=== PATIENT | female | born 1975 | race American Indian/Alaskan Native ===

== ENCOUNTER 2017-02-10 15:47 | Emergency (ER) | payer MEDICARE ==
[2017-02-10 16:23] VITALS: BP 145/98
[2017-02-10] MEDS ORDERED: MOTRIN PO ONE ×2 (19:25→19:27)
--- NOTE | 2017-02-10 20:00 | Emergency Department Report ---
ED Extremity Problem HPI - General Chief complaint: Extremity Injury, Lower Stated complaint: RT ANKLE INJURY Time Seen by Provider: 02/10/17 19:56 Source: patient Mode of arrival: Ambulatory Limitations: No Limitations - History of Present Illness Initial comments: 41-year-old female presents with complaint of pain to her right foot. States that she had an inversion injury. Complaining of pain in her right ankle and right foot. Patient states that she is in a [place] to leave the hospital because she has personal business to take care of does not wish to stay for further assessment simply wishes to be given paperwork that she was here today. Patient states that it is painful to walk on her right foot. States that she needs paperwork as soon as possible and wants to leave AGAINST MEDICAL ADVICE. MD Complaint: extremity pain, extremity swelling -: This morning Location: right, lower extremity Severity scale (0 -10): 6 Quality: aching Consistency: constant ([place] little relief with the lady that was in the wheelchair the Blood coming from) Worsens with: walking - Related Data Previous Rx's Medication Instructions Recorded Last Taken Type Naproxen [Naprosyn TAB] 375 mg PO BID PRN #20 tablet 02/10/17 Unknown Rx Allergies Allergy/AdvReac Type Severity Reaction Status Date / Time No Known Allergies Allergy Unverified 02/10/17 16:23 ED Review of Systems ROS: Stated complaint: RT ANKLE INJURY Other details as noted in HPI Constitutional: denies: chills, fever Eyes: denies: eye pain, eye discharge, vision change ENT: denies: ear pain, throat pain Respiratory: denies: cough, shortness of breath, wheezing Cardiovascular: denies: chest pain, palpitations Endocrine: no symptoms reported Gastrointestinal: denies: abdominal pain, nausea, diarrhea Genitourinary: denies: urgency, dysuria, discharge Musculoskeletal: as per HPI. denies: back pain, joint swelling, arthralgia Skin: denies: rash, lesions Neurological: denies: headache, weakness, paresthesias Psychiatric: denies: anxiety, depression Hematological/Lymphatic: denies: easy bleeding, easy bruising ED Past Medical Hx - Past Medical History Previous Medical History?: No - Surgical History Past Surgical History?: No - Social History Smoking Status: Current Every Day Smoker Substance Use Type: None - Medications Home Medications: Home Medications Medication Instructions Recorded Confirmed Last Taken Type Naproxen [Naprosyn TAB] 375 mg PO BID PRN #20 tablet 02/10/17 Unknown Rx ED Physical Exam - General Limitations: No Limitations General appearance: alert, in no apparent distress - Head Head exam: Present: atraumatic, normocephalic - Eye Eye exam: Present: normal appearance, PERRL, EOMI - ENT ENT exam: Present: mucous membranes moist - Neck Neck exam: Present: normal inspection - Respiratory Respiratory exam: Present: normal lung sounds bilaterally. Absent: respiratory distress - Cardiovascular Cardiovascular Exam: Present: regular rate, normal rhythm. Absent: systolic murmur, diastolic murmur, rubs, gallop - GI/Abdominal GI/Abdominal exam: Present: soft, normal bowel sounds - Extremities Exam Extremities exam: Present: normal inspection - Expanded Lower Extremity Exam Right Ankle exam: Present: tenderness (tenderness at right lateral malleolus and medial malleolus) Foot/Toe exam: Present: tenderness (tenderness at base of fifth metatarsal) Neuro vascular tendon exam: Present: no vascular compromise (distal dorsalis pedis and posterior tibial pulses intact) - Back Exam Back exam: Present: normal inspection - Neurological Exam Neurological exam: Present: alert, oriented X3 - Psychiatric Psychiatric exam: Present: normal affect, normal mood - Skin Skin exam: Present: warm, dry, intact, normal color. Absent: rash ED Course Vital Signs 02/10/17 16:20 Temperature 98.7 F Pulse Rate 92 H Respiratory 16 Rate Blood Pressure 145/98 O2 Sat by Pulse 100 Oximetry ED Medical Decision Making - Medical Decision Making A/P: Possible right foot or right ankle fracture versus sprain 1-patient left AGAINST MEDICAL ADVICE. I advised her that she needed an x-ray of her right foot in addition to her right ankle and that I did not yet have an official radiology report. Patient stated that she could not wait any longer and that she had to leave. I advised patient that if she has a fracture in her foot or ankle and I am not able to fully assess her injury that he can result in permanent disability or loss of foot function. Patient stated she understood this but is adamant that she wants to leave the hospital as soon as possible. Patient states that she cannot wait any longer and wished to leave now. Conversation witnessed by management trainer Kasey. Patient refused an ankle brace or crutches although I offered to her multiple times. 3-patient given Adriel wrap and prescription for naproxen, referred to primary care and orthopedics. I advised her to follow up as soon as possible or to return to the ED for full assessment as soon as possible. Patient uses a wheelchair to exit the emergency department and stated she had a ride waiting for her outside. Critical care attestation.: If time is entered above; I have spent that time in minutes in the direct care of this critically ill patient, excluding procedure time. ED Disposition Disposition: LEFT AGAINST MED ADVICE Is pt being admited?: No Does the pt Need Aspirin: No Condition: Undetermined Instructions: Ankle Sprain (ED), SUSPECTED FRACTURE (ED), RICE Therapy (ED) Prescriptions: Naproxen [Naprosyn TAB] 375 mg PO BID PRN #20 tablet PRN Reason: Pain Referrals: KAL MARTINS MD [Staff Physician] - 3-5 Days [facility] [Provider Group] - 3-5 Days Forms: AMA Form Time of Disposition: 19:58
--- NOTE | 2017-02-10 20:55 | XRay Report ---
FINAL REPORT PROCEDURE: XR ANKLE 3+V RT TECHNIQUE: RIGHT ankle radiographs, AP, lateral, and oblique views. CPT 97393 HISTORY: pain, swelling COMPARISON: No prior studies are available for comparison. FINDINGS: Fracture (s) and/or Dislocation(s): There is flattening of the navicular bone with the increased density. There is also associated modeling deformity of the talar head an acute fracture line is not identified. Alignment: Normal. Joint space(s): Narrowing of the talonavicular and navicular cuneiform joints is identified with mild degree osteophyte formation.. Soft tissues: Normal. Bone mineralization: Normal. Foreign bodies: None. Calcaneal spurring: None. 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 An acute fracture is not identified.
== END 2017-02-10 20:00 | disposition left against medical advice (07) ==
LOC: ED 15:47
DX: M25.571 Pain in right ankle and joints of right foot (principal); F17.200 Nicotine dependence, unspecified, uncomplicated; X58.XXXA Exposure to other specified factors, initial encounter; Y93.89 Activity, other specified; Y99.9 Unspecified external cause status; Y92.89 Other specified places as the place of occurrence of the external cause

== ENCOUNTER 2017-11-09 22:50 | Emergency (ER) | payer MEDICARE ==
[2017-11-09] MEDS ORDERED: NACL 0.9% 1000 ML 1,000 ML IV ONE (23:04)
--- NOTE | 2017-11-09 23:08 | Emergency Department Report ---
<LISSETTE LINDSAY - Last Filed: 11/10/17 02:04> ED Altered Mental Status HPI - General Stated Complaint: AMS Time Seen by Provider: 11/09/17 23:01 Source: patient, EMS, old records reviewed - History of Present Illness Initial Comments: Ms. Lindsay is a 41-year-old female without significant past medical history according to report. To resume all myositis. She has abnormal speech. She was dropped off in front of a personal longterm. The attendant's of the [facility] did not know the patient. EMS was called. MD Complaint: altered mental status -: unknown Severity: moderate Consistency of Symptoms: constant Context: unknown Associated Symptoms: denies other symptoms Treatments Prior to Arrival: oxygen - Related Data Previous Rx's Medication Instructions Recorded Last Taken Type Naproxen [Naprosyn TAB] 375 mg PO BID PRN #20 tablet 02/10/17 Unknown Rx Allergies Allergy/AdvReac Type Severity Reaction Status Date / Time No Known Allergies Allergy Unverified 02/10/17 16:23 ED Review of Systems ROS: Stated complaint: AMS Other details as noted in HPI Comment: All other systems reviewed and negative Constitutional: denies: fever, malaise Respiratory: denies: cough ED Past Medical Hx - Social History Smoking Status: Current Every Day Smoker Substance Use Type: None - Medications Home Medications: Home Medications Medication Instructions Recorded Confirmed Last Taken Type Naproxen [Naprosyn TAB] 375 mg PO BID PRN #20 tablet 02/10/17 Unknown Rx ED Physical Exam - General Limitations: Altered Mental Status, Physical Limitation General appearance: alert, other (has abnormal speech) - Head Head exam: Present: atraumatic, normocephalic - Eye Eye exam: Present: normal appearance, PERRL, EOMI - ENT ENT exam: Present: normal exam, mucous membranes moist - Neck Neck exam: Present: normal inspection. Absent: tenderness, meningismus - Respiratory Respiratory exam: Present: normal lung sounds bilaterally. Absent: respiratory distress, wheezes, rales, rhonchi - Cardiovascular Cardiovascular Exam: Present: regular rate, normal rhythm, normal heart sounds. Absent: systolic murmur, diastolic murmur, rubs, gallop - GI/Abdominal GI/Abdominal exam: Present: soft, normal bowel sounds. Absent: distended, tenderness, guarding, rebound - Extremities Exam Extremities exam: Present: normal inspection - Back Exam Back exam: Present: normal inspection - Neurological Exam Neurological exam: Present: alert, oriented X3, CN II-XII intact, other ( dysarthric speech). Absent: motor sensory deficit - Psychiatric Psychiatric exam: Present: flat affect (odd affect), other - Skin Skin exam: Present: warm, dry, intact, normal color. Absent: rash - Assessment Assessment Interval: Baseline - Level of Consciousness 1a. Level of Consciousness: alert - LOC Questions 1b. LOC Questions: answers correctly - LOC Command 1c. LOC Commands: performs tasks correctly - Best Gaze 2. Best Gaze: normal - Visual 3. Visual: no visual loss - Facial Palsy 4. Facial Palsy: minor paralysis - Motor Arm 5b. Motor Arm Right: no drift 5a. Motor Arm Left: no drift - Motor Leg 6a. Motor Leg Left: no drift 6b. Motor Leg Right: no drift - Limb Ataxia 7. Limb Ataxia: absent - Sensory 8. Sensory: normal - Best Language 9. Best Language: mild/moderate aphasia - Dysarthria 10. Dysarthria: mild/moderate dysarthria - Extinction and Inattention 11. Extinction/Inattention: no abnormality - Scoring Total Score: 3 Stroke Severity: Minor Stroke ED Course Vital Signs 11/09/17 11/09/17 11/09/17 23:05 23:22 23:30 Temperature 98.6 F Pulse Rate 116 H 103 H 91 H Respiratory 20 20 20 Rate Blood Pressure 117/67 123/75 O2 Sat by Pulse 96 98 98 Oximetry 11/09/17 11/09/17 11/10/17 23:46 23:50 00:00 Temperature Pulse Rate 91 H 96 H 100 H Respiratory 20 14 16 Rate Blood Pressure 133/67 144/78 O2 Sat by Pulse 100 100 99 Oximetry 11/10/17 11/10/17 11/10/17 00:16 00:30 00:46 Temperature Pulse Rate 92 H 92 H 97 H Respiratory 18 22 21 Rate Blood Pressure 144/78 131/71 133/67 O2 Sat by Pulse 100 100 99 Oximetry 11/10/17 11/10/17 11/10/17 01:00 01:26 01:30 Temperature Pulse Rate 91 H 87 86 Respiratory 20 17 22 Rate Blood Pressure 122/69 131/71 109/55 O2 Sat by Pulse 100 100 Oximetry 11/10/17 11/10/17 11/10/17 01:46 02:00 02:15 Temperature Pulse Rate 91 H 96 H 95 H Respiratory 20 22 20 Rate Blood Pressure 109/55 116/47 O2 Sat by Pulse 97 96 95 Oximetry 11/10/17 11/10/17 11/10/17 02:30 02:45 03:00 Temperature Pulse Rate 96 H 93 H 90 Respiratory 21 22 22 Rate Blood Pressure 109/50 114/59 106/51 O2 Sat by Pulse 96 100 100 Oximetry 11/10/17 11/10/17 11/10/17 03:15 03:30 03:45 Temperature Pulse Rate 90 86 Respiratory 22 26 H Rate Blood Pressure 115/70 114/64 103/67 O2 Sat by Pulse 99 100 100 Oximetry 11/10/17 11/10/17 04:00 04:15 Temperature Pulse Rate 93 H 96 H Respiratory 24 22 Rate Blood Pressure 93/57 98/56 O2 Sat by Pulse 98 97 Oximetry - Lab Data Result diagrams: 11/09/17 23:18 11/09/17 23:18 Lab Results 11/09/17 11/09/17 11/09/17 Range/Units 00:20 23:09 23:09 WBC (4.5-11.0) K/mm3 RBC (3.65-5.03) M/mm3 Hgb (10.1-14.3) gm/dl Hct (30.3-42.9) % MCV (79-97) fl MCH (28-32) pg MCHC (30-34) % RDW (13.2-15.2) % Plt Count (140-440) K/mm3 Lymph % (Auto) (13.4-35.0) % [place] % (Auto) (0.0-7.3) % Eos % (Auto) (0.0-4.3) % Baso % (Auto) (0.0-1.8) % Lymph # (1.2-5.4) K/mm3 [place] # (0.0-0.8) K/mm3 Eos # (0.0-0.4) K/mm3 Baso # (0.0-0.1) K/mm3 Seg Neutrophils % (40.0-70.0) % Seg Neutrophils # (1.8-7.7) K/mm3 Sodium (137-145) mmol/L Potassium (3.6-5.0) mmol/L Chloride (98-107) mmol/L Carbon Dioxide (22-30) mmol/L Anion Gap mmol/L BUN (7-17) mg/dL Creatinine (0.7-1.2) mg/dL Estimated GFR ml/min BUN/Creatinine Ratio % Glucose (65-100) mg/dL Lactic Acid (0.7-2.0) mmol/L Calcium (8.4-10.2) mg/dL Total Bilirubin (0.1-1.2) mg/dL AST (5-40) units/L ALT (7-56) units/L Alkaline Phosphatase (35-129) units/L Ammonia (25-60) umol/L Total Creatine Kinase (30-135) units/L Troponin T (0.00-0.029) ng/mL Total Protein (6.3-8.2) g/dL Albumin (3.9-5) g/dL Albumin/Globulin Ratio % TSH (0.270-4.200) mlU/mL Urine Color Yellow (Yellow) Urine Turbidity Clear (Clear) Urine pH 6.0 (5.0-7.0) Ur Specific [place] 1.006 (1.003-1.030) Urine Protein <15 mg/dl (Negative) mg/dL Urine Glucose (UA) Neg (Negative) mg/dL Urine Ketones Neg (Negative) mg/dL Urine Blood Neg (Negative) Urine Nitrite Neg (Negative) Urine Bilirubin Neg (Negative) Urine Urobilinogen < 2.0 (<2.0) mg/dL Ur Leukocyte Esterase Neg (Negative) Urine WBC (Auto) < 1.0 (0.0-6.0) /HPF Urine RBC (Auto) 1.0 (0.0-6.0) /HPF U Epithel Cells (Auto) < 1.0 (0-13.0) /HPF Hyaline Casts 1 /LPF Urine Mucus Few /HPF Urine HCG, Qual Negative (Negative) Salicylates (2.8-20.0) mg/dL Urine Opiates Screen Presumptive negative Urine Methadone Screen Presumptive negative Acetaminophen (10.0-30.0) ug/mL Ur Barbiturates Screen Presumptive negative Ur Phencyclidine Scrn Presumptive negative Ur Amphetamines Screen Presumptive negative U Benzodiazepines Scrn Presumptive negative Urine Cocaine Screen Presumptive positive U Marijuana (THC) Screen Presumptive negative Drugs of Abuse Note Disclamer Plasma/Serum Alcohol (0-0.07) % 11/09/17 11/09/17 11/09/17 Range/Units 23:18 23:18 23:18 WBC 13.0 H (4.5-11.0) K/mm3 RBC 4.46 (3.65-5.03) M/mm3 Hgb 14.1 (10.1-14.3) gm/dl Hct 42.8 (30.3-42.9) % MCV 96 (79-97) fl MCH 32 (28-32) pg MCHC 33 (30-34) % RDW 13.9 (13.2-15.2) % Plt Count 327 (140-440) K/mm3 Lymph % (Auto) 21.3 (13.4-35.0) % [place] % (Auto) 4.8 (0.0-7.3) % Eos % (Auto) 0.2 (0.0-4.3) % Baso % (Auto) 1.0 (0.0-1.8) % Lymph # 2.8 (1.2-5.4) K/mm3 [place] # 0.6 (0.0-0.8) K/mm3 Eos # 0.0 (0.0-0.4) K/mm3 Baso # 0.1 (0.0-0.1) K/mm3 Seg Neutrophils % 72.7 H (40.0-70.0) % Seg Neutrophils # 9.5 H (1.8-7.7) K/mm3 Sodium 139 (137-145) mmol/L Potassium 3.2 L (3.6-5.0) mmol/L Chloride 98.3 (98-107) mmol/L Carbon Dioxide 21 L (22-30) mmol/L Anion Gap 23 mmol/L BUN 7 (7-17) mg/dL Creatinine 0.9 (0.7-1.2) mg/dL Estimated GFR > 60 ml/min BUN/Creatinine Ratio 8 % Glucose 86 (65-100) mg/dL Lactic Acid 2.30 H* (0.7-2.0) mmol/L Calcium 9.3 (8.4-10.2) mg/dL Total Bilirubin 0.30 (0.1-1.2) mg/dL AST 15 (5-40) units/L ALT 10 (7-56) units/L Alkaline Phosphatase 82 (35-129) units/L Ammonia (25-60) umol/L Total Creatine Kinase 222 H (30-135) units/L Troponin T < 0.010 (0.00-0.029) ng/mL Total Protein 7.4 (6.3-8.2) g/dL Albumin 4.4 (3.9-5) g/dL Albumin/Globulin Ratio 1.5 % TSH (0.270-4.200) mlU/mL Urine Color (Yellow) Urine Turbidity (Clear) Urine pH (5.0-7.0) Ur Specific [place] (1.003-1.030) Urine Protein (Negative) mg/dL Urine Glucose (UA) (Negative) mg/dL Urine Ketones (Negative) mg/dL Urine Blood (Negative) Urine Nitrite (Negative) Urine Bilirubin (Negative) Urine Urobilinogen (<2.0) mg/dL Ur Leukocyte Esterase (Negative) Urine WBC (Auto) (0.0-6.0) /HPF Urine RBC (Auto) (0.0-6.0) /HPF U Epithel Cells (Auto) (0-13.0) /HPF Hyaline Casts /LPF Urine Mucus /HPF Urine HCG, Qual (Negative) Salicylates (2.8-20.0) mg/dL Urine Opiates Screen Urine Methadone Screen Acetaminophen (10.0-30.0) ug/mL Ur Barbiturates Screen Ur Phencyclidine Scrn Ur Amphetamines Screen U Benzodiazepines Scrn Urine Cocaine Screen U Marijuana (THC) Screen Drugs of Abuse Note Plasma/Serum Alcohol (0-0.07) % 11/09/17 11/09/17 11/09/17 Range/Units 23:18 23:18 23:18 WBC (4.5-11.0) K/mm3 RBC (3.65-5.03) M/mm3 Hgb (10.1-14.3) gm/dl Hct (30.3-42.9) % MCV (79-97) fl MCH (28-32) pg MCHC (30-34) % RDW (13.2-15.2) % Plt Count (140-440) K/mm3 Lymph % (Auto) (13.4-35.0) % [place] % (Auto) (0.0-7.3) % Eos % (Auto) (0.0-4.3) % Baso % (Auto) (0.0-1.8) % Lymph # (1.2-5.4) K/mm3 [place] # (0.0-0.8) K/mm3 Eos # (0.0-0.4) K/mm3 Baso # (0.0-0.1) K/mm3 Seg Neutrophils % (40.0-70.0) % Seg Neutrophils # (1.8-7.7) K/mm3 Sodium (137-145) mmol/L Potassium (3.6-5.0) mmol/L Chloride (98-107) mmol/L Carbon Dioxide (22-30) mmol/L Anion Gap mmol/L BUN (7-17) mg/dL Creatinine (0.7-1.2) mg/dL Estimated GFR ml/min BUN/Creatinine Ratio % Glucose (65-100) mg/dL Lactic Acid (0.7-2.0) mmol/L Calcium (8.4-10.2) mg/dL Total Bilirubin (0.1-1.2) mg/dL AST (5-40) units/L ALT (7-56) units/L Alkaline Phosphatase (35-129) units/L Ammonia 53.0 (25-60) umol/L Total Creatine Kinase (30-135) units/L Troponin T (0.00-0.029) ng/mL Total Protein (6.3-8.2) g/dL Albumin (3.9-5) g/dL Albumin/Globulin Ratio % TSH 1.050 (0.270-4.200) mlU/mL Urine Color (Yellow) Urine Turbidity (Clear) Urine pH (5.0-7.0) Ur Specific [place] (1.003-1.030) Urine Protein (Negative) mg/dL Urine Glucose (UA) (Negative) mg/dL Urine Ketones (Negative) mg/dL Urine Blood (Negative) Urine Nitrite (Negative) Urine Bilirubin (Negative) Urine Urobilinogen (<2.0) mg/dL Ur Leukocyte Esterase (Negative) Urine WBC (Auto) (0.0-6.0) /HPF Urine RBC (Auto) (0.0-6.0) /HPF U Epithel Cells (Auto) (0-13.0) /HPF Hyaline Casts /LPF Urine Mucus /HPF Urine HCG, Qual (Negative) Salicylates < 0.3 L (2.8-20.0) mg/dL Urine Opiates Screen Urine Methadone Screen Acetaminophen (10.0-30.0) ug/mL Ur Barbiturates Screen Ur Phencyclidine Scrn Ur Amphetamines Screen U Benzodiazepines Scrn Urine Cocaine Screen U Marijuana (THC) Screen Drugs of Abuse Note Plasma/Serum Alcohol (0-0.07) % 11/09/17 11/09/17 11/10/17 Range/Units 23:18 23:18 00:56 WBC (4.5-11.0) K/mm3 RBC (3.65-5.03) M/mm3 Hgb (10.1-14.3) gm/dl Hct (30.3-42.9) % MCV (79-97) fl MCH (28-32) pg MCHC (30-34) % RDW (13.2-15.2) % Plt Count (140-440) K/mm3 Lymph % (Auto) (13.4-35.0) % [place] % (Auto) (0.0-7.3) % Eos % (Auto) (0.0-4.3) % Baso % (Auto) (0.0-1.8) % Lymph # (1.2-5.4) K/mm3 [place] # (0.0-0.8) K/mm3 Eos # (0.0-0.4) K/mm3 Baso # (0.0-0.1) K/mm3 Seg Neutrophils % (40.0-70.0) % Seg Neutrophils # (1.8-7.7) K/mm3 Sodium (137-145) mmol/L Potassium (3.6-5.0) mmol/L Chloride (98-107) mmol/L Carbon Dioxide (22-30) mmol/L Anion Gap mmol/L BUN (7-17) mg/dL Creatinine (0.7-1.2) mg/dL Estimated GFR ml/min BUN/Creatinine Ratio % Glucose (65-100) mg/dL Lactic Acid 2.30 H* (0.7-2.0) mmol/L Calcium (8.4-10.2) mg/dL Total Bilirubin (0.1-1.2) mg/dL AST (5-40) units/L ALT (7-56) units/L Alkaline Phosphatase (35-129) units/L Ammonia (25-60) umol/L Total Creatine Kinase (30-135) units/L Troponin T (0.00-0.029) ng/mL Total Protein (6.3-8.2) g/dL Albumin (3.9-5) g/dL Albumin/Globulin Ratio % TSH (0.270-4.200) mlU/mL Urine Color (Yellow) Urine Turbidity (Clear) Urine pH (5.0-7.0) Ur Specific [place] (1.003-1.030) Urine Protein (Negative) mg/dL Urine Glucose (UA) (Negative) mg/dL Urine Ketones (Negative) mg/dL Urine Blood (Negative) Urine Nitrite (Negative) Urine Bilirubin (Negative) Urine Urobilinogen (<2.0) mg/dL Ur Leukocyte Esterase (Negative) Urine WBC (Auto) (0.0-6.0) /HPF Urine RBC (Auto) (0.0-6.0) /HPF U Epithel Cells (Auto) (0-13.0) /HPF Hyaline Casts /LPF Urine Mucus /HPF Urine HCG, Qual (Negative) Salicylates (2.8-20.0) mg/dL Urine Opiates Screen Urine Methadone Screen Acetaminophen < 5.0 L (10.0-30.0) ug/mL Ur Barbiturates Screen Ur Phencyclidine Scrn Ur Amphetamines Screen U Benzodiazepines Scrn Urine Cocaine Screen U Marijuana (THC) Screen Drugs of Abuse Note Plasma/Serum Alcohol 0.20 H (0-0.07) % 11/10/17 Range/Units 03:46 WBC (4.5-11.0) K/mm3 RBC (3.65-5.03) M/mm3 Hgb (10.1-14.3) gm/dl Hct (30.3-42.9) % MCV (79-97) fl MCH (28-32) pg MCHC (30-34) % RDW (13.2-15.2) % Plt Count (140-440) K/mm3 Lymph % (Auto) (13.4-35.0) % [place] % (Auto) (0.0-7.3) % Eos % (Auto) (0.0-4.3) % Baso % (Auto) (0.0-1.8) % Lymph # (1.2-5.4) K/mm3 [place] # (0.0-0.8) K/mm3 Eos # (0.0-0.4) K/mm3 Baso # (0.0-0.1) K/mm3 Seg Neutrophils % (40.0-70.0) % Seg Neutrophils # (1.8-7.7) K/mm3 Sodium (137-145) mmol/L Potassium (3.6-5.0) mmol/L Chloride (98-107) mmol/L Carbon Dioxide (22-30) mmol/L Anion Gap mmol/L BUN (7-17) mg/dL Creatinine (0.7-1.2) mg/dL Estimated GFR ml/min BUN/Creatinine Ratio % Glucose (65-100) mg/dL Lactic Acid 1.90 (0.7-2.0) mmol/L Calcium (8.4-10.2) mg/dL Total Bilirubin (0.1-1.2) mg/dL AST (5-40) units/L ALT (7-56) units/L Alkaline Phosphatase (35-129) units/L Ammonia (25-60) umol/L Total Creatine Kinase (30-135) units/L Troponin T (0.00-0.029) ng/mL Total Protein (6.3-8.2) g/dL Albumin (3.9-5) g/dL Albumin/Globulin Ratio % TSH (0.270-4.200) mlU/mL Urine Color (Yellow) Urine Turbidity (Clear) Urine pH (5.0-7.0) Ur Specific [place] (1.003-1.030) Urine Protein (Negative) mg/dL Urine Glucose (UA) (Negative) mg/dL Urine Ketones (Negative) mg/dL Urine Blood (Negative) Urine Nitrite (Negative) Urine Bilirubin (Negative) Urine Urobilinogen (<2.0) mg/dL Ur Leukocyte Esterase (Negative) Urine WBC (Auto) (0.0-6.0) /HPF Urine RBC (Auto) (0.0-6.0) /HPF U Epithel Cells (Auto) (0-13.0) /HPF Hyaline Casts /LPF Urine Mucus /HPF Urine HCG, Qual (Negative) Salicylates (2.8-20.0) mg/dL Urine Opiates Screen Urine Methadone Screen Acetaminophen (10.0-30.0) ug/mL Ur Barbiturates Screen Ur Phencyclidine Scrn Ur Amphetamines Screen U Benzodiazepines Scrn Urine Cocaine Screen U Marijuana (THC) Screen Drugs of Abuse Note Plasma/Serum Alcohol (0-0.07) % Vital Signs - 24 hr 11/09/17 11/09/17 11/09/17 23:05 23:22 23:30 Temperature 98.6 F Pulse Rate 116 H 103 H 91 H Respiratory 20 20 Rate Blood Pressure 117/67 123/75 O2 Sat by Pulse 96 98 98 Oximetry 11/09/17 11/09/17 11/10/17 23:46 23:50 00:00 Temperature Pulse Rate 91 H 96 H 100 H Respiratory 20 14 16 Rate Blood Pressure 133/67 144/78 O2 Sat by Pulse 100 100 99 Oximetry 11/10/17 11/10/17 11/10/17 00:16 00:30 00:46 Temperature Pulse Rate 92 H 92 H 97 H Respiratory 18 22 21 Rate Blood Pressure 144/78 131/71 133/67 O2 Sat by Pulse 100 100 99 Oximetry 11/10/17 01:00 Temperature Pulse Rate 91 H Respiratory 20 Rate Blood Pressure 122/69 O2 Sat by Pulse 100 Oximetry - Medical Decision Making Ms. Lindsay is a 41-year-old healthy female according to electronic medical record. She presents with altered mental status due to polysubstance abuse. Blood alcohol level 200. UDS positive for cocaine. Awaiting sobriety. My colleague will discharge the patient is appropriate. Patient has mild lactic acidosis without signs of sepsis. Critical Care Time: Yes (45) Critical care attestation.: If time is entered above; I have spent that time in minutes in the direct care of this critically ill patient, excluding procedure time. ED Disposition Disposition: DC-01 TO HOME OR SELFCARE Is pt being admited?: No Does the pt Need Aspirin: No Condition: Stable Instructions: Polysubstance Abuse (ED) Referrals: NIDIA LAGUNAS MD [Staff Physician] - 3-5 Days <JOMAR GUY - Last Filed: 05/18/18 05:05> ED Course - Reevaluation(s) Reevaluation #1: 11/10/17 05:04 Patient has been resting stably during the evening, vital signs are stable, and although she is drowsy, she wakes easily, and is neurologically intact. Her blood: Level was borderline at best at intake, and is clearly going down to a stable level in the 6 hours since initial evaluation. She also has tested positive for cocaine, that is probably fatigued secondary to chronic stimulation , but is stable for discharge home to rest. Patient informed that she was ready for discharge, and that family members could come pick her up. - Lab Data Result diagrams: 11/09/17 23:18 11/09/17 23:18
[2017-11-09 23:29] LABS: Basophils # (Auto) 0.1 K/mm3 (0.0-0.1); Eosinophils % (Auto) 0.2 % (0.0-4.3); Hematocrit 42.8 % (30.3-42.9); Hemoglobin 14.1 gm/dl (10.1-14.3); Lymphocytes # (Auto) 2.8 K/mm3 (1.2-5.4); Lymphocytes % (Auto) 21.3 % (13.4-35.0); Mean Corpuscular HGB Conc 33 % (30-34); Mean Corpuscular Hemoglobin 32 pg (28-32); Mean Corpuscular Volume 96 fl (79-97); Monocytes # (Auto) 0.6 K/mm3 (0.0-0.8); Monocytes % (Auto) 4.8 % (0.0-7.3); Platelet Count 327 K/mm3 (140-440); Red Blood Count 4.46 M/mm3 (3.65-5.03); Red Cell Distribution Width 13.9 % (13.2-15.2)
[2017-11-09 23:31] LABS: Amphetamine Screen,Urine PRESUMPTIVE NEGATIVE; Benzodiazepines Screen,Urine PRESUMPTIVE NEGATIVE; Cannabinoid Screen,Urine PRESUMPTIVE NEGATIVE; Methadone Screen,Urine PRESUMPTIVE NEGATIVE; Opiate Screen,Urine PRESUMPTIVE NEGATIVE
--- NOTE | 2017-11-09 23:46 | XRay Report ---
FINAL REPORT PROCEDURE: XR CHEST 1V AP TECHNIQUE: Chest radiograph anteroposterior view. CPT 72363 HISTORY: Altered Mental Status COMPARISON: No prior studies are available for comparison. FINDINGS: Heart: Normal. Mediastinum/Vessels: Normal. Lungs/Pleural space: There is suboptimal inspiration. There is mild pulmonary vascular congestion. There are no infiltrates, effusions or pneumothoraces.. Bony thorax: No acute osseous abnormality. Life support devices: None. IMPRESSION: No acute cardiopulmonary abnormality.
[2017-11-09 23:48] LABS: Alanine Aminotransferase 10 units/L (7-56); Albumin 4.4 g/dL (3.9-5); BUN/Creatinine Ratio 8; Blood Urea Nitrogen 7 mg/dL (7-17); Calcium 9.3 mg/dL (8.4-10.2); Hemolysis Index 10
[2017-11-09 23:55] LABS: Bilirubin,Urine NEG (Negative); Blood,Urine NEG (Negative); Color,Urine Yellow (Yellow); Hyaline Casts,Urine 1 /LPF; Mucus,Urine FEW /HPF; Protein,Urine <15 mg/dL mg/dL (Negative); Urobilinogen,Urine < 2.0 mg/dL (<2.0); WBC,Urine < 1.0 /HPF (0.0-6.0)
[2017-11-10 00:06] LABS: Cocaine Screen,Urine PRESUMPTIVE POSITIVE
[2017-11-10 00:50] LABS: HCG Qualitative,Urine Negative (Negative)
--- NOTE | 2017-11-10 01:31 | Cat Scan Report ---
FINAL REPORT PROCEDURE: CT HEAD/BRAIN WO CON TECHNIQUE: Computerized tomography of the head was performed without contrast material. HISTORY: Altered Mental Status COMPARISON: No prior studies are available for comparison. FINDINGS: Skull and scalp: Normal. Paranasal sinuses: Normal. Ventricles and subarachnoid spaces: Normal. Cerebrum: No evidence of hemorrhage, acute infarction or mass . Cerebellum and brainstem: No evidence of hemorrhage, acute infarction or mass. Vasculature: Normal. Comments: None. IMPRESSION: Normal Examination
[2017-11-10 07:25] VITALS: BP 99/43
== END 2017-11-10 15:20 | disposition home or self-care (01) ==
LOC: ED 22:50
DX: F19.10 Other psychoactive substance abuse, uncomplicated (principal); R41.82 Altered mental status, unspecified; F17.200 Nicotine dependence, unspecified, uncomplicated
CPT/HCPCS: 36415; 70450; 71045; 80053; 80307; 81001; 81025; 82140; 82550; 82803; 82962; 84443; 84484; 85025; 87086; 93005; 93010; 96360; 99291; G0480; J7030; 80320

== ENCOUNTER 2020-12-30 23:10 | Emergency (ER) | payer MEDICARE ==
[2020-12-30 23:39] VITALS: BP 131/83
== END 2020-12-31 02:20 | disposition left against medical advice (07) ==
LOC: ED 23:10
DX: R41.82 Altered mental status, unspecified (principal); Z76.0 Encounter for issue of repeat prescription; Z53.21 Procedure and treatment not carried out due to patient leaving prior to being seen by health care provider

== ENCOUNTER 2021-02-19 14:04 | Emergency (ER) | payer MEDICARE ==
[2021-02-20] MEDS ORDERED: NICOTINE 21 MG/24 HR PATCH TD ONE ×2 (00:54→03:59)
--- NOTE | 2021-02-20 00:54 | Emergency Department Report ---
HPI - General Chief Complaint: Psych Time Seen by Provider: 02/20/21 00:45 - HPI HPI: This is a 45-year-old -Portuguese female, with a history of bipolar disorder and schizophrenia, who presents to the emergency department with a 1 week history of suicidal ideations. The patient says that she has been having a lot of depression and has a plan that she would or could overdose on her medication. Patient says "I need to be back on Ativan." It appears that the patient is currently on Seroquel, and while she says she is compliant, she says that the medication makes her "feisty." She denies any current auditory or visual hallucinations, and denies any homicidal ideations. She is a tobacco smoker but denies any illicit drug use. ED Past Medical Hx - Past Medical History Previous Medical History?: Yes Hx Psychiatric Treatment: Yes (bipolar) - Surgical History Past Surgical History?: No - Social History Smoking Status: Current Every Day Smoker Substance Use Type: None - Medications Home Medications: Home Medications Medication Instructions Recorded Confirmed Last Taken Type Naproxen [Naprosyn TAB] 375 mg PO BID PRN #20 tablet 02/10/17 Unknown Rx ED Review of Systems ROS: Stated complaint: suicidal Other details as noted in HPI Comment: All other systems reviewed and negative Constitutional: denies: chills, fever Eyes: denies: eye pain, vision change ENT: denies: ear pain, throat pain Respiratory: denies: cough, shortness of breath Cardiovascular: denies: chest pain, palpitations Gastrointestinal: denies: abdominal pain, vomiting Genitourinary: denies: dysuria, discharge Musculoskeletal: denies: back pain, arthralgia Neurological: denies: headache, weakness Psychiatric: depression, suicidal thoughts. denies: auditory hallucinations, visual hallucinations, homicidal thoughts Physical Exam - Physical Exam Vital Signs: Vital Signs 02/19/21 14:46 Temperature 98.0 F Pulse Rate 83 Respiratory 18 Rate Blood Pressure 137/73 O2 Sat by Pulse 100 Oximetry Physical Exam: GENERAL: The patient is well-developed well-nourished. HENT: Normocephalic. Atraumatic. Patient has moist mucous membranes. EYES: Extraocular motions are intact. NECK: Supple. Trachea is midline. CHEST/LUNGS: Clear to auscultation. There is no respiratory distress noted. HEART/CARDIOVASCULAR: Regular. There is no tachycardia. There is no murmur. ABDOMEN: Abdomen is soft, nontender. Patient has normal bowel sounds. SKIN: Skin is warm and dry. NEURO: The patient is awake, alert, and oriented. The patient is cooperative. Normal speech. MUSCULOSKELETAL: There is no tenderness or deformity. There is no limitation range of motion. ED Course Vital Signs 02/19/21 14:46 Temperature 98.0 F Pulse Rate 83 Respiratory 18 Rate Blood Pressure 137/73 O2 Sat by Pulse 100 Oximetry ED Medical Decision Making - Lab Data Result diagrams: 02/20/21 00:50 02/20/21 00:50 Lab Results 02/20/21 02/20/21 02/20/21 Range/Units 00:44 00:44 00:50 WBC 8.6 (4.5-11.0) K/mm3 RBC 3.84 (3.65-5.03) M/mm3 Hgb 12.8 (10.1-14.3) gm/dl Hct 37.4 (30.3-42.9) % MCV 97 (79-97) fl MCH 33 H (28-32) pg MCHC 34 (30-34) % RDW 13.6 (13.2-15.2) % Plt Count 279 (140-440) K/mm3 Lymph % (Auto) 33.0 (13.4-35.0) % [place] % (Auto) 8.0 H (0.0-7.3) % Eos % (Auto) 4.3 (0.0-4.3) % Baso % (Auto) 0.7 (0.0-1.8) % Lymph # (Auto) 2.8 (1.2-5.4) K/mm3 [place] # (Auto) 0.7 (0.0-0.8) K/mm3 Eos # (Auto) 0.4 (0.0-0.4) K/mm3 Baso # (Auto) 0.1 (0.0-0.1) K/mm3 Seg Neutrophils % 54.0 (40.0-70.0) % Seg Neutrophils # 4.6 (1.8-7.7) K/mm3 Sodium (137-145) mmol/L Potassium (3.6-5.0) mmol/L Chloride (98-107) mmol/L Carbon Dioxide (22-30) mmol/L Anion Gap mmol/L BUN (7-17) mg/dL Creatinine (0.6-1.2) mg/dL Estimated GFR ml/min BUN/Creatinine Ratio % Glucose (65-100) mg/dL Calcium (8.4-10.2) mg/dL HCG, Qual (Negative) Urine Color Yellow (Yellow) Urine Turbidity Clear (Clear) Urine pH 6.0 (5.0-7.0) Ur Specific [place] 1.017 (1.003-1.030) Urine Protein <15 mg/dl (Negative) mg/dL Urine Glucose (UA) Neg (Negative) mg/dL Urine Ketones Neg (Negative) mg/dL Urine Blood Neg (Negative) Urine Nitrite Neg (Negative) Urine Bilirubin Neg (Negative) Urine Urobilinogen 2.0 (<2.0) mg/dL Ur Leukocyte Esterase Mod (Negative) Urine WBC (Auto) 2.0 (0.0-6.0) /HPF Urine RBC (Auto) 2.0 (0.0-6.0) /HPF U Epithel Cells (Auto) 2.0 (0-13.0) /HPF Urine Bacteria (Auto) 1+ (Negative) /HPF Urine Mucus Few /HPF Urine Opiates Screen Presumptive negative Urine Methadone Screen Presumptive negative Ur Barbiturates Screen Presumptive negative Ur Phencyclidine Scrn Presumptive negative Ur Amphetamines Screen Presumptive negative U Benzodiazepines Scrn Presumptive negative Urine Cocaine Screen Presumptive negative U Marijuana (THC) Screen Presumptive positive Drugs of Abuse Note Disclamer Plasma/Serum Alcohol (0-0.07) % 02/20/21 02/20/21 02/20/21 Range/Units 00:50 00:50 00:50 WBC (4.5-11.0) K/mm3 RBC (3.65-5.03) M/mm3 Hgb (10.1-14.3) gm/dl Hct (30.3-42.9) % MCV (79-97) fl MCH (28-32) pg MCHC (30-34) % RDW (13.2-15.2) % Plt Count (140-440) K/mm3 Lymph % (Auto) (13.4-35.0) % [place] % (Auto) (0.0-7.3) % Eos % (Auto) (0.0-4.3) % Baso % (Auto) (0.0-1.8) % Lymph # (Auto) (1.2-5.4) K/mm3 [place] # (Auto) (0.0-0.8) K/mm3 Eos # (Auto) (0.0-0.4) K/mm3 Baso # (Auto) (0.0-0.1) K/mm3 Seg Neutrophils % (40.0-70.0) % Seg Neutrophils # (1.8-7.7) K/mm3 Sodium 137 (137-145) mmol/L Potassium 3.5 L (3.6-5.0) mmol/L Chloride 100.3 (98-107) mmol/L Carbon Dioxide 28 (22-30) mmol/L Anion Gap 12 mmol/L BUN 12 (7-17) mg/dL Creatinine 0.7 (0.6-1.2) mg/dL Estimated GFR > 60 ml/min BUN/Creatinine Ratio 17 % Glucose 88 (65-100) mg/dL Calcium 9.3 (8.4-10.2) mg/dL HCG, Qual Negative (Negative) Urine Color (Yellow) Urine Turbidity (Clear) Urine pH (5.0-7.0) Ur Specific [place] (1.003-1.030) Urine Protein (Negative) mg/dL Urine Glucose (UA) (Negative) mg/dL Urine Ketones (Negative) mg/dL Urine Blood (Negative) Urine Nitrite (Negative) Urine Bilirubin (Negative) Urine Urobilinogen (<2.0) mg/dL Ur Leukocyte Esterase (Negative) Urine WBC (Auto) (0.0-6.0) /HPF Urine RBC (Auto) (0.0-6.0) /HPF U Epithel Cells (Auto) (0-13.0) /HPF Urine Bacteria (Auto) (Negative) /HPF Urine Mucus /HPF Urine Opiates Screen Urine Methadone Screen Ur Barbiturates Screen Ur Phencyclidine Scrn Ur Amphetamines Screen U Benzodiazepines Scrn Urine Cocaine Screen U Marijuana (THC) Screen Drugs of Abuse Note Plasma/Serum Alcohol < 0.01 (0-0.07) % - Medical Decision Making This patient presents to the emergency department with a complaint of depression and suicidal ideations. For this reason she has been made a 1013 and placed on an ED hold. Labs have been mostly unremarkable including CBC, metabolic panel, blood alcohol level, urinalysis, and UDS only positive for marijuana. The patient does not appear acutely intoxicated. Vital signs have been reassuring throughout her ED course thus far including being afebrile. We will continue to monitor the patient during her ED course. The patient will be seen by either the psychiatric orthodontic technician assistant or the psychiatric team tomorrow to assist with further disposition. This patient is medically c leared for psychiatric placement. Critical Care Time: No Critical care attestation.: If time is entered above; I have spent that time in minutes in the direct care of this critically ill patient, excluding procedure time. ED Disposition Clinical Impression: Depression, Encounter for behavioral health screening, Encounter for medical screening examination Disposition: HOME / SELF CARE / HOMELESS Is pt being admited?: No Condition: Good Additional Instructions: Please continue current outpatient prescribed medications. Follow-up with an outpatient primary care doctor within the next month. Follow-up with an outpatient psychiatrist or mental health provider within the next 2 to 3 weeks. Avoid consumption of alcohol, marijuana, tobacco and smoke products, and recreational drugs. Please return to the emergency room right away with new pain, worsened pain, migration of pain, projectile vomiting, change in mental status, confusion, inability to tolerate liquid feeds, new, worsened or different symptoms not present on the initial emergency room evaluation. Please have a primary care doctor contact medical records department to obtain copies of laboratory studies, and follow-up on nonemergent incidental findings. OUTPATIENT MENTAL HEALTH RESOURCES [facility], [facility] Alejo Mak MD: [address], [address] [facility] [address] [place] [address] [place] [address] [place] [facility]: [facility] [address] [place] [address] [place] [address] [phone] [facility]iat[facility]: [facility] Healthcare: [address] [facility] [address] [facility] [place] [address] [facility] [address] [facility]: Moisés Aguero MD: [id number] [facility] [address] [facility] [address] [facility]: [address] [place] [address] [phone] [place] CRISIS AND ACCESS LINE: Transitional Intermediate Providers: Pritesh Denton [phone] Address: [address] [place] [id number] MrAbby Fatuma: Niko Contreras [phone] Ms. Sandoval: Farrah Lazo [phone] MsAbby Medinate [employer] [phone] Ms. Garrett: [facility] [phone] [facility] Home: [facility] [phone] [facility] Referrals: [facility] [Provider Group] - 3-5 Days MILLINOCKET ERWIN MEJIA MD [Primary Care Provider] - 3-5 Days Time of Disposition: 03:45
[2021-02-20 01:20] LABS: Amphetamine Screen,Urine PRESUMPTIVE NEGATIVE; Benzodiazepines Screen,Urine PRESUMPTIVE NEGATIVE; Cannabinoid Screen,Urine PRESUMPTIVE POSITIVE; Cocaine Screen,Urine PRESUMPTIVE NEGATIVE; Methadone Screen,Urine PRESUMPTIVE NEGATIVE; Opiate Screen,Urine PRESUMPTIVE NEGATIVE
[2021-02-20 01:24] LABS: Blood Urea Nitrogen 12 mg/dL (7-17); Calcium 9.3 mg/dL (8.4-10.2); Hemolysis Index 7
[2021-02-20 01:25] LABS: BUN/Creatinine Ratio 17
[2021-02-20 01:32] LABS: Basophils # (Auto) 0.1 K/mm3 (0.0-0.1); Basophils % (Auto) 0.7 % (0.0-1.8); Eosinophils # (Auto) 0.4 K/mm3 (0.0-0.4); Eosinophils % (Auto) 4.3 % (0.0-4.3); Hematocrit 37.4 % (30.3-42.9); Hemoglobin 12.8 gm/dl (10.1-14.3); Lymphocytes # (Auto) 2.8 K/mm3 (1.2-5.4); Mean Corpuscular HGB Conc 34 % (30-34); Mean Corpuscular Volume 97 fl (79-97); Monocytes # (Auto) 0.7 K/mm3 (0.0-0.8); Platelet Count 279 K/mm3 (140-440); Red Blood Count 3.84 M/mm3 (3.65-5.03); Red Cell Distribution Width 13.6 % (13.2-15.2)
[2021-02-20 01:38] LABS: Bacteria,Urine 1+ /HPF (Negative); Bilirubin,Urine NEG (Negative); Blood,Urine NEG (Negative); Color,Urine Yellow (Yellow); Mucus,Urine FEW /HPF; Protein,Urine <15 mg/dL mg/dL (Negative)
[2021-02-20] MEDS ORDERED: ALPRAZolam 0.5 MG TAB PO ONE (01:56)
[2021-02-20 08:07] VITALS: BP 134/81
--- NOTE | 2021-02-20 09:51 | Consultation ---
History of Present Illness - Reason for Consult Consult date: 02/20/21 Reason for consult: SI - History of Present Psychiatric Illness PER ER Note: This is a 45-year-old -[place] female, with a history of bipolar disorder and schizophrenia, who presents to the emergency department with a 1 week history of suicidal ideations. The patient says that she has been having a lot of depression and has a plan that she would or could overdose on her medication. Patient says "I need to be back on Ativan." It appears that the patient is currently on Seroquel, and while she says she is compliant, she says that the medication makes her "feisty." She denies any current auditory or visual hallucinations, and denies any homicidal ideations. She is a tobacco smoker but denies any illicit drug use. Aj Lindsay is a 45y/o patient who presented to the ER for suicidal ideation. During my interview with the patient she is calm, and cooperative. She is a/o x 3. The patient says she "feels good and ready to go." She says she had a situati on with the place she was renting. The patient says "every time I pay my rent, the lady tells me to get out." She says "one of my coworker says I can rent a room from her." The patient says this was her problem and states that "the situation with the lady and my living arrangements make me depressed." She denies SI/HI at present. She says "oh no, I'm not suicidal. It's just the lady does this when she takes my rent and tells me to get out. I don't want to hurt nobody." She says "I feel good. I got a place to go." She denies hallucinations of any kind. PAST PSYCHIATRIC HISTORY: Diagnoses: Bipolar, schizophrenia Suicide attempts or Self-harm behavior: Yes Prior psychiatric hospitalizations: Yes Substance Abuse history: Denies Previous psychiatric medications tried: seroquel Outpatient treatment: yes PAST MEDICAL HISTORY: None reported or document Family Psychiatric History: None reported or documented SOCIAL HISTORY Marital Status: single Living Arrangements: rents room Employment Status: Unemployed Access to guns/weapons: denies Education: History of Abuse: denies Legal History: denies REVIEW OF SYSTEMS Constitutional: Negative for weight loss ENT: Negative for stridor Respiratory: Negative for cough or hemoptysis All other systems reviewed and are negative MENTAL STATUS EXAMINATION General Appearance and Behavior: Age appropriate, good hygiene, wearing appropriate clothes, calm and cooperative polite with questioning. Cooperation: engaged Psychomotor Behavior: Psychomotor normal Mood: Better Affect and affective range: congruent with stated mood Thought Process: goal directed Thought Content: None Speech: Normal volume, Regular rate and rhythm, Suicidal Ideation: Denies Homicidal Ideation: Denies Hallucinations: Denies Delusions: None elicited Impulse Control: Questionable Insight and Judgment: Limited Memory: Limited Attention: attentive Orientation: a/o Assessment and Plan (1)Bipolar Treatment Plan d/c 1013 Continue previously prescribed home meds Medical: Per primary Disposition: Do not recommend acute psychiatric inpatient treatment. She understands that if suicidal thoughts return she is to seek immediate assistance Media Supervisor to further discuss safety plan and give the patient resources for group homes Case staffed with Dr. Rodrigez Medications and Allergies Allergies Allergy/AdvReac Type Severity Reaction Status Date / Time No Known Allergies Allergy Unverified 02/10/17 16:23 Home Medications Medication Instructions Recorded Confirmed Last Taken Type Naproxen [Naprosyn TAB] 375 mg PO BID PRN #20 tablet 02/10/17 Unknown Rx Mental Status Exam - Vital signs Last Vital Signs Temp 97.9 F 02/20/21 00:54 Pulse 88 02/20/21 08:06 Resp 18 02/20/21 08:06 BP 134/81 02/20/21 08:06 Pulse Ox 99 02/20/21 08:06 Results Result Diagrams: 02/20/21 00:50 02/20/21 00:50 Abnormal lab results 02/20/21 02/20/21 Range/Units 00:50 00:50 MCH 33 H (28-32) pg [place] % (Auto) 8.0 H (0.0-7.3) % Potassium 3.5 L (3.6-5.0) mmol/L All other labs normal.
--- NOTE | 2021-02-20 10:41 | Event Note ---
Date: 02/20/21 The patient was evaluated in the emergency department for symptoms described in the history of present illness. He/she was evaluated in the context of the global COVID-19 pandemic, which necessitated consideration that the patient might be at risk for infection with the virus that causes COVID-19. Institutional protocols and algorithms that pertain to the evaluation of patients at risk for COVID-19 are in a state of rapid change based on information released by regulatory bodies including the CDC and federal and state organizations. These policies and algorithms were followed during the patient's care in the emergency department. Please note that these policies, procedures and recommendations changed on a rapid basis. Laboratory studies, vital signs, ER documentation and psychiatric documentation, in addition to nursing, and ancillary staff documentation are reviewed and appreciated. At the moment, the patient is resting comfortably on her stretcher and in no acute distress. She denies physical pain, urinary symptoms, homicidality and suicidality. She presents as alert, oriented, sober, and in no acute distress. She was deemed medically suitable for psychiatric placement during her initial ER evaluation. Psychiatry team has recommended outpatient follow-up, and further recommended that this patient does not meet criteria for 1013 hold or involuntary hold. The patient specifically denies urinary symptoms. Patient may be discharged with outpatient resources at this time. Nursing team reports that the patient ate breakfast without difficulty, and has been going to the bathroom, and able to communicate her needs without difficulty. Vital Signs 02/19/21 02/19/21 02/20/21 14:46 14:55 00:54 Temperature 98.0 F 98.6 F 97.9 F Pulse Rate 83 111 H 93 H Respiratory 18 20 18 Rate Blood Pressure 137/73 113/69 Blood Pressure 135/77 [Left] O2 Sat by Pulse 100 96 100 Oximetry 02/20/21 08:06 Temperature Pulse Rate 88 Respiratory 18 Rate Blood Pressure Blood Pressure 134/81 [Left] O2 Sat by Pulse 99 Oximetry Lab Results 02/20/21 02/20/21 02/20/21 Range/Units 00:44 00:44 00:50 WBC 8.6 (4.5-11.0) K/mm3 RBC 3.84 (3.65-5.03) M/mm3 Hgb 12.8 (10.1-14.3) gm/dl Hct 37.4 (30.3-42.9) % MCV 97 (79-97) fl MCH 33 H (28-32) pg MCHC 34 (30-34) % RDW 13.6 (13.2-15.2) % Plt Count 279 (140-440) K/mm3 Lymph % (Auto) 33.0 (13.4-35.0) % [place] % (Auto) 8.0 H (0.0-7.3) % Eos % (Auto) 4.3 (0.0-4.3) % Baso % (Auto) 0.7 (0.0-1.8) % Lymph # (Auto) 2.8 (1.2-5.4) K/mm3 [place] # (Auto) 0.7 (0.0-0.8) K/mm3 Eos # (Auto) 0.4 (0.0-0.4) K/mm3 Baso # (Auto) 0.1 (0.0-0.1) K/mm3 Seg Neutrophils % 54.0 (40.0-70.0) % Seg Neutrophils # 4.6 (1.8-7.7) K/mm3 Sodium (137-145) mmol/L Potassium (3.6-5.0) mmol/L Chloride (98-107) mmol/L Carbon Dioxide (22-30) mmol/L Anion Gap mmol/L BUN (7-17) mg/dL Creatinine (0.6-1.2) mg/dL Estimated GFR ml/min BUN/Creatinine Ratio % Glucose (65-100) mg/dL Calcium (8.4-10.2) mg/dL HCG, Qual (Negative) Urine Color Yellow (Yellow) Urine Turbidity Clear (Clear) Urine pH 6.0 (5.0-7.0) Ur Specific [place] 1.017 (1.003-1.030) Urine Protein <15 mg/dl (Negative) mg/dL Urine Glucose (UA) Neg (Negative) mg/dL Urine Ketones Neg (Negative) mg/dL Urine Blood Neg (Negative) Urine Nitrite Neg (Negative) Urine Bilirubin Neg (Negative) Urine Urobilinogen 2.0 (<2.0) mg/dL Ur Leukocyte Esterase Mod (Negative) Urine WBC (Auto) 2.0 (0.0-6.0) /HPF Urine RBC (Auto) 2.0 (0.0-6.0) /HPF U Epithel Cells (Auto) 2.0 (0-13.0) /HPF Urine Bacteria (Auto) 1+ (Negative) /HPF Urine Mucus Few /HPF Urine Opiates Screen Presumptive negative Urine Methadone Screen Presumptive negative Ur Barbiturates Screen Presumptive negative Ur Phencyclidine Scrn Presumptive negative Ur Amphetamines Screen Presumptive negative U Benzodiazepines Scrn Presumptive negative Urine Cocaine Screen Presumptive negative U Marijuana (THC) Screen Presumptive positive Drugs of Abuse Note Disclamer Plasma/Serum Alcohol (0-0.07) % 02/20/21 02/20/21 02/20/21 Range/Units 00:50 00:50 00:50 WBC (4.5-11.0) K/mm3 RBC (3.65-5.03) M/mm3 Hgb (10.1-14.3) gm/dl Hct (30.3-42.9) % MCV (79-97) fl MCH (28-32) pg MCHC (30-34) % RDW (13.2-15.2) % Plt Count (140-440) K/mm3 Lymph % (Auto) (13.4-35.0) % [place] % (Auto) (0.0-7.3) % Eos % (Auto) (0.0-4.3) % Baso % (Auto) (0.0-1.8) % Lymph # (Auto) (1.2-5.4) K/mm3 [place] # (Auto) (0.0-0.8) K/mm3 Eos # (Auto) (0.0-0.4) K/mm3 Baso # (Auto) (0.0-0.1) K/mm3 Seg Neutrophils % (40.0-70.0) % Seg Neutrophils # (1.8-7.7) K/mm3 Sodium 137 (137-145) mmol/L Potassium 3.5 L (3.6-5.0) mmol/L Chloride 100.3 (98-107) mmol/L Carbon Dioxide 28 (22-30) mmol/L Anion Gap 12 mmol/L BUN 12 (7-17) mg/dL Creatinine 0.7 (0.6-1.2) mg/dL Estimated GFR > 60 ml/min BUN/Creatinine Ratio 17 % Glucose 88 (65-100) mg/dL Calcium 9.3 (8.4-10.2) mg/dL HCG, Qual Negative (Negative) Urine Color (Yellow) Urine Turbidity (Clear) Urine pH (5.0-7.0) Ur Specific [place] (1.003-1.030) Urine Protein (Negative) mg/dL Urine Glucose (UA) (Negative) mg/dL Urine Ketones (Negative) mg/dL Urine Blood (Negative) Urine Nitrite (Negative) Urine Bilirubin (Negative) Urine Urobilinogen (<2.0) mg/dL Ur Leukocyte Esterase (Negative) Urine WBC (Auto) (0.0-6.0) /HPF Urine RBC (Auto) (0.0-6.0) /HPF U Epithel Cells (Auto) (0-13.0) /HPF Urine Bacteria (Auto) (Negative) /HPF Urine Mucus /HPF Urine Opiates Screen Urine Methadone Screen Ur Barbiturates Screen Ur Phencyclidine Scrn Ur Amphetamines Screen U Benzodiazepines Scrn Urine Cocaine Screen U Marijuana (THC) Screen Drugs of Abuse Note Plasma/Serum Alcohol < 0.01 (0-0.07) %
== END 2021-02-20 11:29 | disposition home or self-care (01) ==
LOC: ED 14:04
DX: F32.9 Major depressive disorder, single episode, unspecified (principal); Z13.30 Encounter for screening examination for mental health and behavioral disorders, unspecified; F17.200 Nicotine dependence, unspecified, uncomplicated; Z20.822 Contact with and (suspected) exposure to COVID-19
CPT/HCPCS: 36415; 80048; 80307; 81001; 84703; 85025; 99284; U0003; 80320; 99283; G0480

== ENCOUNTER 2021-03-02 13:13 | Emergency (ER) | payer MEDICARE ==
[2021-03-02 15:07] VITALS: BP 115/74
== END 2021-03-02 15:42 | disposition left against medical advice (07) ==
LOC: ED 13:13
DX: R51.9 Headache, unspecified (principal); Z53.21 Procedure and treatment not carried out due to patient leaving prior to being seen by health care provider

== ENCOUNTER 2021-03-04 20:41 | Emergency (ER) | payer MEDICARE ==
[2021-03-04 22:03] VITALS: BP 154/80
== END 2021-03-04 23:00 | disposition left against medical advice (07) ==
LOC: ED 20:41
DX: R51.9 Headache, unspecified (principal); Z53.21 Procedure and treatment not carried out due to patient leaving prior to being seen by health care provider

== ENCOUNTER 2021-03-05 03:04 | Emergency (ER) | payer MEDICARE | END 2021-03-05 03:09 | disposition left against medical advice (07) | LOC: ED 03:04 | DX: R51.9 Headache, unspecified (principal); Z53.21 Procedure and treatment not carried out due to patient leaving prior to being seen by health care provider ==

== ENCOUNTER 2021-03-05 14:53 | Emergency (ER) | payer MEDICARE | END 2021-03-05 14:58 | disposition left against medical advice (07) | LOC: ED 14:53 | DX: R51.9 Headache, unspecified (principal); Z53.21 Procedure and treatment not carried out due to patient leaving prior to being seen by health care provider ==

== ENCOUNTER 2021-03-07 11:35 | Emergency (ER) | payer MEDICARE ==
[2021-03-07 11:49] VITALS: BP 104/40
== END 2021-03-07 12:22 | disposition left against medical advice (07) ==
LOC: ED 11:35
DX: R69 Illness, unspecified (principal); Z53.21 Procedure and treatment not carried out due to patient leaving prior to being seen by health care provider

== ENCOUNTER 2021-03-24 19:59 | Emergency (ER) | payer MEDICARE ==
[2021-03-24 21:52] VITALS: BP 143/79
[2021-03-24] MEDS ORDERED: ACETAMINOPHEN 500 MG TAB PO ONE (22:11)
[2021-03-24] MEDS ORDERED: PROMETHAZINE 25 MG TAB PO ONE (22:11)
[2021-03-24] MEDS ORDERED: IBUPROFEN 600 MG TAB PO ONE (22:11)
--- NOTE | 2021-03-24 22:15 | Emergency Department Report ---
ED General Adult HPI - General Chief complaint: Headache Stated complaint: MAJOR HEADACHE Source: patient Mode of arrival: Ambulatory Limitations: No Limitations - History of Present Illness Initial comments: Patient is a 45-year-old -[place] female with a history of bipolar disorder, anxiety and depression who presents to the ED with complaint of acute onset persistent generalized headache for the last 2 weeks. Patient states that she has been taking [id number] medication with no relief. Patient denies dizziness, syncope, nausea and vomiting, chest pain, shortness of breath, change in vision, fever, chills, abdominal pain, neck pain, palpitations, cough, traumatic injury or fall. MD Complaint: headache -: Sudden, week(s) (2) Location: head Radiation: non-radiation Severity scale (0 -10): 7 Quality: aching, sharp Consistency: constant Improves with: none Worsens with: none Associated Symptoms: denies other symptoms, headaches. denies: confusion, chest pain, cough, diaphoresis, fever/chills, loss of appetite, malaise, nausea/vomiting, rash, seizure, shortness of breath, syncope, weakness Treatments Prior to Arrival: none - Related Data Previous Rx's Medication Instructions Recorded Last Taken Type Naproxen [Naprosyn TAB] 375 mg PO BID PRN #20 tablet 02/10/17 Unknown Rx Baclofen 20 mg PO Q12H PRN #20 tablet 03/24/21 Unknown Rx Naproxen Sodium [Naproxen Sodium 550 mg PO Q12H PRN #20 tablet 03/24/21 Unknown Rx 550mg] Allergies Allergy/AdvReac Type Severity Reaction Status Date / Time No Known Allergies Allergy Verified 03/24/21 21:52 ED Review of Systems ROS: Stated complaint: MAJOR HEADACHE Other details as noted in HPI Constitutional: denies: chills, fever Eyes: denies: eye pain, eye discharge, vision change ENT: denies: ear pain, throat pain Respiratory: denies: cough, shortness of breath, wheezing Cardiovascular: denies: chest pain, palpitations Endocrine: no symptoms reported Gastrointestinal: denies: abdominal pain, nausea, diarrhea Genitourinary: denies: urgency, dysuria, discharge Musculoskeletal: denies: back pain, joint swelling, arthralgia Skin: denies: rash, lesions Neurological: headache. denies: weakness, paresthesias Psychiatric: denies: anxiety, depression Hematological/Lymphatic: denies: easy bleeding, easy bruising ED Past Medical Hx - Past Medical History Previous Medical History?: No Hx Psychiatric Treatment: Yes (bipolar) Additional medical history: Syncopal - Social History Smoking Status: Former Smoker Substance Use Type: None - Medications Home Medications: Home Medications Medication Instructions Recorded Confirmed Last Taken Type Naproxen [Naprosyn TAB] 375 mg PO BID PRN #20 tablet 02/10/17 Unknown Rx Baclofen 20 mg PO Q12H PRN #20 tablet 03/24/21 Unknown Rx Naproxen Sodium [Naproxen Sodium 550 mg PO Q12H PRN #20 tablet 03/24/21 Unknown Rx 550mg] ED Physical Exam - General Limitations: No Limitations General appearance: alert, in no apparent distress - Head Head exam: Present: atraumatic, normocephalic, normal inspection - Eye Eye exam: Present: normal appearance, PERRL, EOMI Pupils: Present: normal accommodation - ENT ENT exam: Present: normal exam, normal orophraynx, mucous membranes moist, TM's normal bilaterally, normal external ear exam - Neck Neck exam: Present: normal inspection, full ROM. Absent: tenderness - Respiratory Respiratory exam: Present: normal lung sounds bilaterally. Absent: respiratory distress, wheezes, rales, rhonchi, chest wall tenderness, accessory muscle use, decreased breath sounds, prolonged expiratory - Cardiovascular Cardiovascular Exam: Present: regular rate, normal rhythm, normal heart sounds. Absent: systolic murmur, diastolic murmur, rubs, gallop - GI/Abdominal GI/Abdominal exam: Present: soft, normal bowel sounds. Absent: tenderness, guarding, rebound, hyperactive bowel sounds, hypoactive bowel sounds, organomegaly - Extremities Exam Extremities exam: Present: normal inspection, full ROM, normal capillary refill - Back Exam Back exam: Present: normal inspection, full ROM. Absent: tenderness, CVA tenderness (R), CVA tenderness (L), muscle spasm, paraspinal tenderness, verte bral tenderness, rash noted - Neurological Exam Neurological exam: Present: alert, oriented X3, CN II-XII intact, normal gait, reflexes normal - Psychiatric Psychiatric exam: Present: depressed, anxious, flat affect. Absent: homicidal ideation, suicidal ideation - Skin Skin exam: Present: warm, dry, intact, normal color. Absent: rash ED Course Vital Signs 03/24/21 21:50 Temperature 98.4 F Pulse Rate 104 H Respiratory 18 Rate Blood Pressure 143/79 O2 Sat by Pulse 97 Oximetry ED Medical Decision Making - Medical Decision Making This is a 45-year-old -[place] female with a history of bipolar disorder, anxiety and depression who presents to the ED with complaint of acute onset persistent generalized headache for the last 2 weeks. Patient states that she has been taking [id number] medication with no relief. In the ED, patient is alert and oriented x3 and is not in any distress. Patient was treated in the ED for pain, and the vital signs are stable. Patient was discharged home on pain medications and advised to follow-up with her primary care physician in 5 to 7 days for reevaluation or return to the ED immediately if symptoms get worse. - Differential Diagnosis Tension headache, sinus headache, cluster headache, migraine headache Critical care attestation.: If time is entered above; I have spent that time in minutes in the direct care of this critically ill patient, excluding procedure time. ED Disposition Clinical Impression: Acute non intractable tension-type headache Disposition: 01 HOME / SELF CARE / HOMELESS Is pt being admited?: No Does the pt Need Aspirin: No Condition: Stable Instructions: Tension Headache, Adult, [id number], General Headache Without Cause, [id number] Additional Instructions: Take medication with food, drink plenty of fluids and follow-up with your primary care physician in 5 to 7 days for reevaluation. Return to the ED immed iately if symptoms get worse. Prescriptions: Baclofen 20 mg PO Q12H PRN #20 tablet PRN Reason: Muscle Spasm Naproxen Sodium [Naproxen Sodium 550mg] 550 mg PO Q12H PRN #20 tablet PRN Reason: Pain , Severe (7-10) Referrals: [facility] [Provider Group] - 7-10 days Time of Disposition: 22:17 Print Language: DIVEHI
== END 2021-03-24 22:36 | disposition home or self-care (01) ==
LOC: ED 19:59
DX: G44.209 Tension-type headache, unspecified, not intractable (principal); F31.9 Bipolar disorder, unspecified; R55 Syncope and collapse; Z87.891 Personal history of nicotine dependence
CPT/HCPCS: 99282

== ENCOUNTER 2021-04-05 22:11 | Emergency (ER) | payer MEDICARE ==
--- NOTE | 2021-04-05 22:40 | Event Note ---
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 Further treatment and workup at subsequent clinical providers discretion. Patient/guardian urged not to elope from the ED as their condition may be serious if not clinically assessed and managed. Initial orders include: PSYCH W/U
== END 2021-04-05 22:53 | disposition left against medical advice (07) ==
LOC: ED 22:11
DX: R41.3 Other amnesia (principal); Z53.21 Procedure and treatment not carried out due to patient leaving prior to being seen by health care provider

== ENCOUNTER 2021-04-07 08:13 | Emergency (ER) | payer MEDICARE ==
--- NOTE | 2021-04-07 08:48 | Emergency Department Report ---
Blank Doc - Documentation Documentation: I went to examine the patient. Patient eloped immediately after triage. Nurse, IV, inform me that she was alert, oriented x3 and denied any suicidal or homicidal ideation.
== END 2021-04-07 08:52 | disposition home or self-care (01) ==
LOC: ED 08:13
DX: R41.82 Altered mental status, unspecified (principal); Z53.21 Procedure and treatment not carried out due to patient leaving prior to being seen by health care provider

== ENCOUNTER 2022-01-15 11:09 | Emergency (ER) | payer MEDICARE | END 2022-01-16 00:15 | disposition left against medical advice (07) | LOC: ED 11:09 | DX: E11.9 Type 2 diabetes mellitus without complications (principal); Z53.21 Procedure and treatment not carried out due to patient leaving prior to being seen by health care provider ==